=== PATIENT | female | born 1930 | race Caucasian/White ===

== ENCOUNTER 2019-12-18 01:44 | Observation (INO) | payer MEDICARE, OTHER ==
[2019-12-18] MEDS ORDERED: NALOXONE 0.4 MG/ML 1 ML VIAL IV PRN (02:12)
[2019-12-18] MEDS ORDERED: ACETAMINOPHEN TAB 325 MG TAB PO PRN (02:12)
[2019-12-18 07:03] LABS: Glucose,Whole Blood 179 mg/dL (75-99)
[2019-12-18] MEDS ORDERED: traMADol 50 MG TAB PO PRN ×2 (09:45→17:00)
[2019-12-18] MEDS ORDERED: bisacodyL 10 MG SUPP RECTAL PRN (09:45)
[2019-12-18] MEDS ORDERED: MAGNESIUM HYDROXIDE 2,400 MG/10 ML CUP PO PRN (09:47)
[2019-12-18 11:20] LABS: Glucose,Whole Blood 167 mg/dL (75-99)
[2019-12-18] MEDS: INSULIN ASPART (NovoLOG) 100 UNIT/ML VIAL SQ SCH ×3 (12:24→20:49)
[2019-12-18] MEDS: ACETAMINOPHEN TAB 325 MG TAB PO SCH ×2 (12:25→20:48)
[2019-12-18 13:35] LABS: Basophils # (A) 0.1 k/uL (0-0.2); Basophils % (A) 1 %; Eosinophils # (A) 0.2 k/uL (0-0.7); Eosinophils % (A) 2 %; HCT 41.9 % (34.0-46.0); HGB 13.6 gm/dL (11.4-16.0); Lymphocytes # (A) 2.9 k/uL (1.0-4.8); Lymphocytes % (A) 31 %; MCH 32.1 pg (25.0-35.0); MCHC 32.6 g/dL (31.0-37.0); MCV 98.5 fL (80.0-100.0); Mean Platelet Volume 7.1; Monocytes # (A) 0.5 k/uL (0-1.0); Monocytes % (A) 6 %; Neutrophils # (A) 5.4 k/uL (1.3-7.7); Neutrophils % (A) 58 %; Platelet Count 235 k/uL (150-450); RBC 4.25 m/uL (3.80-5.40); RDW 12.2 % (11.5-15.5); WBC 9.3 k/uL (3.8-10.6)
[2019-12-18 14:11] LABS: ALT 29 U/L (4-34); AST 35 U/L (14-36); African American GFR (CKD) 44 (>60 ml/min/1.73 sqM); Albumin 3.6 g/dL (3.5-5.0); Albumin/Globulin Ratio 1.1; Alkaline Phosphatase 80 U/L (38-126); Anion Gap 5 mmol/L; Blood Urea Nitrogen 36 mg/dL (7-17); C Reactive Protein 17.4 mg/L (<10.0); Calcium 9.3 mg/dL (8.4-10.2); Carbon Dioxide 27 mmol/L (22-30); Chloride 107 mmol/L (98-107); Globulin 3.2 g/dL; Glucose 183 mg/dL (74-99); LDH 494 U/L (313-618); Non-African American GFR(CKD) 38 (>60 ml/min/1.73 sqM); Potassium 4.8 mmol/L (3.5-5.1); Sodium 139 mmol/L (137-145); Total Bilirubin 0.8 mg/dL (0.2-1.3); Total Protein 6.8 g/dL (6.3-8.2)
--- NOTE | 2019-12-18 14:44 | XR ---
EXAMINATION TYPE: XR chest 1V DATE OF EXAM: 12/18/2019 CLINICAL HISTORY: Pneumonia. TECHNIQUE: Portable frontal view of the chest. COMPARISON: None FINDINGS: The patient is rotated to the right. Elevation of the hemidiaphragm. The cardiac silhouette is within normal limits for size. Pulmonary vasculature is normal. There is no focal air space opaci ty, pleural effusion, or pneumothorax seen. The osseous structures are intact. IMPRESSION: No acute cardiopulmonary process.
[2019-12-18 16:22] LABS: Glucose,Whole Blood 215 mg/dL (75-99)
[2019-12-18 20:17] LABS: Ferritin 224.5 ng/mL (10.0-291.0)
[2019-12-18 20:27] LABS: Glucose,Whole Blood 173 mg/dL (75-99)
[2019-12-18] MEDS: TOBRA-DEXAMET 0.3-0.1% OPHTH OINT 3.5 GM TUBE LEFT EYE SCH (20:48)
[2019-12-18] MEDS: APIXABAN 2.5 MG TABLET PO SCH (20:48)
[2019-12-18] MEDS: INSULIN DETEMIR (LEVEMIR) 100 UNIT/ML SYR SQ SCH (20:48)
[2019-12-18] MEDS: ARTIFICIAL TEARS-HYPROMELLOSE DROPS 15 ML BTL BOTH EYES SCH (20:48)
[2019-12-18] MEDS: ATORVASTATIN 10 MG TAB PO SCH (20:49)
--- NOTE | 2019-12-18 22:04 | P.HPIM ---
History of Present Illness H&P Date: 12/18/19 Chief Complaint: Acute COVID-19 infection Patient is a 89-year-old female with a known history of hypertension, hyperlipidemia, diabetes type 2 insulin-dependent, atrial fibrillation on anticoagulation with Eliquis was sent to hospital from [facility] after she was tested positive for COVID-19 viral infection. Patient is nonverbal at baseline. Awake alert. Could not communicate and bedridden. Patient does not have any fever at this time. No vomiting or diarrhea. Chest x-ray showed no acute cardiopulmonary process Laboratory data showed WBC 9.3, hemoglobin 13.1, absolute lymphocyte count 2.9, BUN 36 and creatinine 1.28 Blood sugar is 215 LDH 494 CRP 17.4 and ferritin level is 224 Review of Systems Complete review of systems could not be obtained from the patient except as per HPI. Past Medical History Past Medical History: Atrial Fibrillation, Hyperlipidemia, Hypertension, Neurologic Disorder History of Any Multi-Drug Resistant Organisms: None Reported Past Psychological History: No Psychological Hx Reported Smoking Status: Unknown if ever smoked Past Alcohol Use History: None Reported Past Drug Use History: None Reported Medications and Allergies Home Medications Medication Instructions Recorded Confirmed Type Acetaminophen Tab [Tylenol] 325 mg PO TID@0500,1300,199912/18/19 12/18/19 History Apixaban [Eliquis] 2.5 mg PO BID@0700,199912/18/19 12/18/19 History Artificial Tears-Hypromellose 1 drops BOTH EYES BID@0500,2100 12/18/19 12/18/19 History [Artificial Tear Drops] Atorvastatin [Lipitor] 10 mg PO HS@209912/18/19 12/18/19 History Cranberry 425mg 425 mg PO HS@199912/18/19 12/18/19 History Digoxin [Lanoxin] 125 mcg PO DAILY@0700 12/18/19 12/18/19 History Fluticasone Nasal [place] [Flonase 1 spray EA NOSTRIL DAILY@0700 12/18/19 12/18/19 History Nasal [place]] Insulin Aspart [NovoLOG Flexpen] See Protocol SQ DAILY@1200 12/18/19 12/18/19 History Insulin Detemir (Levemir) [Levemir] 90 unit SQ BID@0500,199912/18/19 12/18/19 History Loratadine [Claritin] 10 mg PO Q48H 12/18/19 12/18/19 History Magic Cup 120 ml PO HS@199912/18/19 12/18/19 History Magnesium Hydroxide [Milk of 2,400 mg PO DAILY PRN 12/18/19 12/18/19 History Magnesia] Metoprolol Tartrate [Lopressor] 25 mg PO DAILY@0700 12/18/19 12/18/19 History Multivitamins, Thera [Multivitamin 1 tab PO DAILY@0700 12/18/19 12/18/19 History (formulary)] Senexon-S 1 tab PO BID@0700,199912/18/19 12/18/19 History Tobra-Dexamet 0.3-0.1% Eye Oin 1 applic LEFT EYE HS@199912/18/19 12/18/19 History [Tobradex] Torsemide [Demadex] 20 mg PO DAILY@0700 12/18/19 12/18/19 History bisacodyL [Dulcolax] 10 mg RECTAL DAILY PRN 12/18/19 12/18/19 History lisinopriL [Zestril] 5 mg PO DAILY@0700 12/18/19 12/18/19 History sitaGLIPtin PHOSPHATE [Januvia] 25 mg PO DAILY@0700 12/18/19 12/18/19 History traMADol HCL [Ultram] 50 mg PO DAILY@1700 PRN 12/18/19 12/18/19 History traMADol HCL [Ultram] 100 mg PO DAILY@0500 12/18/19 12/18/19 History Allergies Allergy/AdvReac Type Severity Reaction Status Date / Time Penicillins Allergy Unknown Verified 12/18/19 07:57 Sulfa (Sulfonamide Allergy Unknown Verified 12/18/19 07:57 Antibiotics) tuberculin, purified protein Allergy Unknown Verified 12/18/19 07:57 deriva Physical Exam Vitals: Vital Signs Temp Pulse Pulse Resp BP BP Pulse Ox 12/18/19 07:00 98.3 F 72 18 101/66 96 12/18/19 03:32 98.1 F 76 18 135/71 94 L 12/18/19 02:14 20 12/18/19 01:46 98.3 F 91 18 119/70 95 Intake and Output 12/17/19 12/18/1920 22:59 06:59 14:59 Other: Voiding Method Diaper # Voids 1 Weight 49.895 kg PHYSICAL EXAMINATION: Patient is lying in the bed comfortably, no acute distress, awake alert but non verbal.. HEENT: Normocephalic. Neck is supple. Pupils reactive. Nostrils clear. Oral cavity is moist. Ears reveal no drainage. Neck reveals no JVD, carotid bruits, or thyromegaly. CHEST EXAMINATION: Trachea is central. Symmetrical expansion. Lung jimenez clear to auscultation and percussion. CARDIAC: Normal S1, S2 with no gallops. No murmurs ABDOMEN: Soft. Bowel sounds normal. No organomegaly. No abdominal bruits. Extremities: reveal no edema. No clubbing or cyanosis Neurologically awake, alert, oriented x0 with dementia Skin: No rash or skin lesions. Psychiatric: Coperative. Musculoskeletal: No joint swelling or deformity. Results CBC & Chem 7: 12/18/19 13:24 12/18/19 13:24 Labs: Abnormal Lab Results - Last 24 Hours (Table) 12/18/19 12/18/19 Range/Units 07:01 11:19 POC Glucose (mg/dL) 179 H 167 H (75-99) mg/dL Thrombosis Risk Factor Assmnt - DVT/VTE Prophylaxis DVT/VTE Prophylaxis: Pharmacologic Prophylaxis ordered - Choose All That Apply Each Risk Factor Represents 3 Points: Age 75 years or older Thrombosis Risk Factor Assessment Total Risk Factor Score: 3 Thrombosis Risk Factor Assessment Level: Moderate Risk Assessment and Plan Assessment: Acute COVID-19 viral infection Mild dehydration Diabetes type 2 insulin-dependent Proximal atrial fibrillation on anticoagulation with Eliquis. Rate controlled with digoxin and metoprolol. Hypertension controlled Hyperlipidemia Medical debility currently bedridden Advanced dementia DVT prophylaxis patient is already on Eliquis Plan: Patient will be continued on supportive therapy. Oxygen therapy as needed. Continue with anticoagulation with Eliquis as per her home dose. Continue to follow closely and will add dexamethasone if she gets hypoxic. Continue with home medications and insulin dosing. Discussed with her daughter. Further recommendations based on the clinical course. Time with Patient: Greater than 30
[2019-12-19 05:52] LABS: Glucose,Whole Blood 70 mg/dL (75-99)
[2019-12-19] MEDS: ACETAMINOPHEN TAB 325 MG TAB PO SCH ×3 (05:57→20:54)
[2019-12-19] MEDS: ARTIFICIAL TEARS-HYPROMELLOSE DROPS 15 ML BTL BOTH EYES SCH ×2 (05:57→20:55)
[2019-12-19] MEDS: INSULIN DETEMIR (LEVEMIR) 100 UNIT/ML SYR SQ SCH ×2 (06:33→20:54)
[2019-12-19 07:15] LABS: Glucose,Whole Blood 56 mg/dL (75-99)
[2019-12-19] MEDS: APIXABAN 2.5 MG TABLET PO SCH ×2 (07:17→20:54)
[2019-12-19] MEDS: TORSEMIDE 20 MG TAB PO SCH (07:17)
[2019-12-19] MEDS: DIGOXIN 125 MCG TAB PO SCH (07:17)
[2019-12-19] MEDS: lisinopriL 5 MG TAB PO SCH (07:17)
[2019-12-19] MEDS: METOPROLOL TARTRATE 25 MG TAB PO SCH (07:17)
[2019-12-19] MEDS: FLUTICASONE 50MCG/SPRAY NASAL 16GM EA NOSTRIL SCH (07:17)
[2019-12-19] MEDS: INSULIN ASPART (NovoLOG) 100 UNIT/ML VIAL SQ SCH ×4 (07:18→20:54)
[2019-12-19 07:30] LABS: Glucose,Whole Blood 66 mg/dL (75-99)
[2019-12-19 07:54] LABS: Glucose,Whole Blood 79 mg/dL (75-99)
[2019-12-19 09:44] LABS: African American GFR (CKD) 42.7 (60.0-200.0); Anion Gap 9.8 mmol/L (4.00-12.00); BUN/Creat Ratio 23.85 Ratio (12.00-20.00); Calcium 9.8 mg/dL (8.7-10.3); Carbon Dioxide 25.2 mmol/L (21.6-31.8); Non-African American GFR(CKD) 36.9 (60.0-200.0); Potassium 4.5 mmol/L (3.5-5.5)
[2019-12-19 11:22] LABS: Glucose,Whole Blood 232 mg/dL (75-99)
[2019-12-19 15:01] LABS: Hemoglobin A1C 7.8 % (4.0-6.0)
[2019-12-19 16:16] LABS: Glucose,Whole Blood 328 mg/dL (75-99)
[2019-12-19 20:47] LABS: Glucose,Whole Blood 251 mg/dL (75-99)
[2019-12-19] MEDS: ATORVASTATIN 10 MG TAB PO SCH (20:55)
[2019-12-19] MEDS: TOBRA-DEXAMET 0.3-0.1% OPHTH OINT 3.5 GM TUBE LEFT EYE SCH (20:56)
[2019-12-20] MEDS: ACETAMINOPHEN TAB 325 MG TAB PO SCH ×3 (05:32→19:08)
[2019-12-20] MEDS: ARTIFICIAL TEARS-HYPROMELLOSE DROPS 15 ML BTL BOTH EYES SCH ×2 (05:33→21:05)
[2019-12-20 07:15] LABS: Glucose,Whole Blood 148 mg/dL (75-99)
[2019-12-20] MEDS: lisinopriL 5 MG TAB PO SCH (07:30)
[2019-12-20] MEDS: METOPROLOL TARTRATE 25 MG TAB PO SCH (07:30)
[2019-12-20] MEDS: APIXABAN 2.5 MG TABLET PO SCH ×2 (07:30→19:08)
[2019-12-20] MEDS: FLUTICASONE 50MCG/SPRAY NASAL 16GM EA NOSTRIL SCH (07:30)
[2019-12-20] MEDS: TORSEMIDE 20 MG TAB PO SCH (07:31)
[2019-12-20] MEDS: DIGOXIN 125 MCG TAB PO SCH (07:31)
[2019-12-20] MEDS: INSULIN DETEMIR (LEVEMIR) 100 UNIT/ML SYR SQ SCH ×2 (07:32→21:05)
[2019-12-20] MEDS: INSULIN ASPART (NovoLOG) 100 UNIT/ML VIAL SQ SCH ×4 (07:32→21:05)
[2019-12-20 11:20] LABS: Glucose,Whole Blood 274 mg/dL (75-99)
[2019-12-20 16:28] LABS: Glucose,Whole Blood 206 mg/dL (75-99)
[2019-12-20] MEDS: TOBRA-DEXAMET 0.3-0.1% OPHTH OINT 3.5 GM TUBE LEFT EYE SCH (19:08)
[2019-12-20 20:43] LABS: Glucose,Whole Blood 245 mg/dL (75-99)
[2019-12-20] MEDS: ATORVASTATIN 10 MG TAB PO SCH (21:05)
--- NOTE | 2019-12-20 23:33 | P.PN ---
Subjective Progress Note Date: 12/19/19 Principal diagnosis: Acute COVID-19 infection Patient is a 89-year-old female with a known history of hypertension, hyperlipidemia, diabetes type 2 insulin-dependent, atrial fibrillation on anticoagulation with Eliquis was sent to hospital from [facility] after she was tested positive for COVID-19 viral infection. Patient is nonverbal at baseline. Awake alert. Could not communicate and bedridden. Patient does not have any fever at this time. No vomiting or diarrhea. Chest x-ray showed no acute cardiopulmonary process Laboratory data showed WBC 9.3, hemoglobin 13.1, absolute lymphocyte count 2.9, BUN 36 and creatinine 1.28 Blood sugar is 215 LDH 494 CRP 17.4 and ferritin level is 224 12/19/2019 Patient is currently lying in the bed comfortably. Patient is nonverbal at base line. Patient has been afebrile and saturating well on room air. No cough or sputum production. Tolerating oral diet. Chest x-ray showed no acute cardiopulmonary process. Patient is being continued on home medications including Eliquis. Insulin dosing. Insulin dose was reduced to 40 mg twice daily due to hypoglycemia. Continue with insulin sliding scale. Complete review of systems could not be obtained from the patient. Current medications reviewed. Objective - Vital Signs Vital signs: Vital Signs Temp 97.5 F L 12/19/19 18:58 Pulse 81 12/19/19 18:58 Resp 16 12/19/19 18:58 BP 145/69 12/19/19 18:58 Pulse Ox 95 12/19/19 18:58 Intake & Output 12/19/19 12/19/19 12/20/19 06:59 18:59 06:59 Output Total 100 400 Balance -100 -400 Output: Urine 100 400 Other: Voiding Method Diaper # Voids 1 2 - Exam PHYSICAL EXAMINATION: Patient is lying in the bed comfortably, no acute distress, awake alert but non verbal.. HEENT: Normocephalic. Neck is supple. Pupils reactive. Nostrils clear. Oral cavity is moist. Ears reveal no drainage. Neck reveals no JVD, carotid bruits, or thyromegaly. CHEST EXAMINATION: Trachea is central. Symmetrical expansion. Lung jimenez clear to auscultation and percussion. CARDIAC: Normal S1, S2 with no gallops. No murmurs ABDOMEN: Soft. Bowel sounds normal. No organomegaly. No abdominal bruits. Extremities: reveal no edema. No clubbing or cyanosis Neurologically awake, alert, oriented x0 with dementia Skin: No rash or skin lesions. Psychiatric: Coperative. Musculoskeletal: No joint swelling or deformity. - Labs CBC & Chem 7: 12/18/19 13:24 12/19/19 06:00 Labs: Abnormal Lab Results - Last 24 Hours (Table) 12/19/19 12/19/19 12/19/19 Range/Units 05:49 06:00 06:00 BUN 31.0 H (9.0-27.0) mg/dL Est GFR (CKD-EPI)AfAm 42.7 L (60.0-200.0) Est GFR (CKD-EPI)NonAf 36.9 L (60.0-200.0) BUN/Creatinine Ratio 23.85 H (12.00-20.00) Ratio Glucose 55 L (70-110) mg/dL POC Glucose (mg/dL) 70 L (75-99) mg/dL Hemoglobin A1c 7.8 H (4.0-6.0) % 12/19/19 12/19/19 12/19/19 Range/Units 07:05 07:26 11:20 BUN (9.0-27.0) mg/dL Est GFR (CKD-EPI)AfAm (60.0-200.0) Est GFR (CKD-EPI)NonAf (60.0-200.0) BUN/Creatinine Ratio (12.00-20.00) Ratio Glucose (70-110) mg/dL POC Glucose (mg/dL) 56 L 66 L 232 H (75-99) mg/dL Hemoglobin A1c (4.0-6.0) % 12/19/19 12/19/19 Range/Units 16:14 20:45 BUN (9.0-27.0) mg/dL Est GFR (CKD-EPI)AfAm (60.0-200.0) Est GFR (CKD-EPI)NonAf (60.0-200.0) BUN/Creatinine Ratio (12.00-20.00) Ratio Glucose (70-110) mg/dL POC Glucose (mg/dL) 328 H 251 H (75-99) mg/dL Hemoglobin A1c (4.0-6.0) % Assessment and Plan Assessment: Acute COVID-19 viral infection Mild dehydration Diabetes type 2 insulin-dependent Proximal atrial fibrillation on anticoagulation with Eliquis. Rate controlled with digoxin and metoprolol. Hypertension controlled Hyperlipidemia Medical debility currently bedridden Advanced dementia DVT prophylaxis patient is already on Eliquis Plan: Patient will be continued on supportive therapy. Oxygen therapy as needed. Continue with anticoagulation with Eliquis as per her home dose. Continue to follow closely and will add dexamethasone if she gets hypoxic. Continue with home medications and insulin dosing. Discussed with her daughter. Further recommendations based on the clinical course. Time with Patient: Greater than 30
--- NOTE | 2019-12-20 23:34 | P.PN ---
Subjective Progress Note Date: 12/20/19 Principal diagnosis: Acute COVID-19 infection Patient is a 89-year-old female with a known history of hypertension, hyperlipidemia, diabetes type 2 insulin-dependent, atrial fibrillation on anticoagulation with Eliquis was sent to hospital from [facility] after she was tested positive for COVID-19 viral infection. Patient is nonverbal at baseline. Awake alert. Could not communicate and bedridden. Patient does not have any fever at this time. No vomiting or diarrhea. Chest x-ray showed no acute cardiopulmonary process Laboratory data showed WBC 9.3, hemoglobin 13.1, absolute lymphocyte count 2.9, BUN 36 and creatinine 1.28 Blood sugar is 215 LDH 494 CRP 17.4 and ferritin level is 224 12/19/2019 Patient is currently lying in the bed comfortably. Patient is nonverbal at base line. Patient has been afebrile and saturating well on room air. No cough or sputum production. Tolerating oral diet. Chest x-ray showed no acute cardiopulmonary process. Patient is being continued on home medications including Eliquis. Insulin dosing. Insulin dose was reduced to 40 mg twice daily due to hypoglycemia. Continue with insulin sliding scale. 12/20/2019 Patient is currently lying in the bed comfortably. Tolerating oral diet. Currently saturating well on room air. No nausea vomiting or diarrhea. Patient is nonverbal at baseline. No cough or sputum production. No other acute overnight issues. Awaiting transfer to [address] Complete review of systems could not be obtained from the patient. Current medications reviewed. Objective - Vital Signs Vital signs: Vital Signs Temp 97.4 F L 12/20/19 19:05 Pulse 72 12/20/19 19:05 Resp 16 12/20/19 19:05 BP 129/81 12/20/19 19:05 Pulse Ox 94 L 12/20/19 19:05 Intake & Output 12/20/19 12/20/19 12/21/19 06:59 18:59 06:59 Intake Total 100 Output Total 300 600 Balance -200 -600 Intake: Oral 100 Output: Urine 300 600 Other: Voiding Method Diaper Diaper Incontinent # Voids 1 - Exam PHYSICAL EXAMINATION: Patient is lying in the bed comfortably, no acute distress, awake alert but non verbal.. HEENT: Normocephalic. Neck is supple. Pupils reactive. Nostrils clear. Oral cavity is moist. Ears reveal no drainage. Neck reveals no JVD, carotid bruits, or thyromegaly. CHEST EXAMINATION: Trachea is central. Symmetrical expansion. Lung jimenez clear to auscultation and percussion. CARDIAC: Normal S1, S2 with no gallops. No murmurs ABDOMEN: Soft. Bowel sounds normal. No organomegaly. No abdominal bruits. Extremities: reveal no edema. No clubbing or cyanosis Neurologically awake, alert, oriented x0 with dementia Skin: No rash or skin lesions. Psychiatric: Coperative. Musculoskeletal: No joint swelling or deformity. - Labs CBC & Chem 7: 12/18/19 13:24 12/19/19 06:00 Labs: Abnormal Lab Results - Last 24 Hours (Table) 12/20/19 12/20/19 12/20/19 Range/Units 07:13 11:16 16:27 POC Glucose (mg/dL) 148 H 274 H 206 H (75-99) mg/dL 12/20/19 Range/Units 20:39 POC Glucose (mg/dL) 245 H (75-99) mg/dL Assessment and Plan Assessment: Acute COVID-19 viral infection Mild dehydration Diabetes type 2 insulin-dependent Proximal atrial fibrillation on anticoagulation with Eliquis. Rate controlled with digoxin and metoprolol. Hypertension controlled Hyperlipidemia Medical debility currently bedridden Advanced dementia DVT prophylaxis patient is already on Eliquis Plan: Patient will be continued on supportive therapy. Oxygen therapy as needed. Continue with anticoagulation with Eliquis as per her home dose. Continue to follow closely and will add dexamethasone if she gets hypoxic. Continue with home medications and insulin dosing. Further recommendations based on the clinical course. Time with Patient: Greater than 30
[2019-12-21] MEDS: ACETAMINOPHEN TAB 325 MG TAB PO SCH ×3 (04:15→20:05)
[2019-12-21] MEDS: ARTIFICIAL TEARS-HYPROMELLOSE DROPS 15 ML BTL BOTH EYES SCH ×2 (04:16→20:06)
[2019-12-21 05:56] LABS: Glucose,Whole Blood 116 mg/dL (75-99)
[2019-12-21] MEDS: lisinopriL 5 MG TAB PO SCH (06:00)
[2019-12-21] MEDS: INSULIN DETEMIR (LEVEMIR) 100 UNIT/ML SYR SQ SCH ×2 (06:00→20:42)
[2019-12-21] MEDS: DIGOXIN 125 MCG TAB PO SCH (06:00)
[2019-12-21] MEDS: METOPROLOL TARTRATE 25 MG TAB PO SCH (06:00)
[2019-12-21] MEDS: APIXABAN 2.5 MG TABLET PO SCH ×2 (06:00→20:05)
[2019-12-21] MEDS: TORSEMIDE 20 MG TAB PO SCH (06:00)
[2019-12-21] MEDS: FLUTICASONE 50MCG/SPRAY NASAL 16GM EA NOSTRIL SCH (06:00)
[2019-12-21 06:54] LABS: Glucose,Whole Blood 135 mg/dL (75-99)
[2019-12-21] MEDS: INSULIN ASPART (NovoLOG) 100 UNIT/ML VIAL SQ SCH ×4 (07:18→20:42)
[2019-12-21 11:48] LABS: Glucose,Whole Blood 197 mg/dL (75-99)
[2019-12-21 16:56] LABS: Glucose,Whole Blood 162 mg/dL (75-99)
[2019-12-21] MEDS: ATORVASTATIN 10 MG TAB PO SCH (20:05)
[2019-12-21] MEDS: TOBRA-DEXAMET 0.3-0.1% OPHTH OINT 3.5 GM TUBE LEFT EYE SCH (20:06)
[2019-12-21 20:32] LABS: Glucose,Whole Blood 216 mg/dL (75-99)
[2019-12-22] MEDS: ARTIFICIAL TEARS-HYPROMELLOSE DROPS 15 ML BTL BOTH EYES SCH ×2 (04:58→19:37)
[2019-12-22] MEDS: ACETAMINOPHEN TAB 325 MG TAB PO SCH ×3 (04:58→19:37)
[2019-12-22] MEDS: APIXABAN 2.5 MG TABLET PO SCH ×2 (07:30→19:36)
[2019-12-22] MEDS: DIGOXIN 125 MCG TAB PO SCH (07:30)
[2019-12-22] MEDS: TORSEMIDE 20 MG TAB PO SCH (07:30)
[2019-12-22] MEDS: METOPROLOL TARTRATE 25 MG TAB PO SCH (07:30)
[2019-12-22] MEDS: lisinopriL 5 MG TAB PO SCH (07:31)
[2019-12-22] MEDS: FLUTICASONE 50MCG/SPRAY NASAL 16GM EA NOSTRIL SCH (07:31)
[2019-12-22] MEDS: INSULIN DETEMIR (LEVEMIR) 100 UNIT/ML SYR SQ SCH ×2 (07:31→20:58)
[2019-12-22] MEDS: INSULIN ASPART (NovoLOG) 100 UNIT/ML VIAL SQ SCH ×4 (07:31→20:58)
[2019-12-22 07:52] LABS: Glucose,Whole Blood 128 mg/dL (75-99)
[2019-12-22 11:34] LABS: Glucose,Whole Blood 265 mg/dL (75-99)
[2019-12-22 17:05] LABS: Glucose,Whole Blood 177 mg/dL (75-99)
[2019-12-22] MEDS: ATORVASTATIN 10 MG TAB PO SCH (19:36)
[2019-12-22] MEDS: TOBRA-DEXAMET 0.3-0.1% OPHTH OINT 3.5 GM TUBE LEFT EYE SCH (19:37)
[2019-12-22 20:48] LABS: Glucose,Whole Blood 213 mg/dL (75-99)
--- NOTE | 2019-12-23 | P.PN ---
Subjective Progress Note Date: 12/21/19 Principal diagnosis: Acute COVID-19 infection Patient is a 89-year-old female with a known history of hypertension, hyperlipidemia, diabetes type 2 insulin-dependent, atrial fibrillation on anticoagulation with Eliquis was sent to hospital from [facility] after she was tested positive for COVID-19 viral infection. Patient is nonverbal at baseline. Awake alert. Could not communicate and bedridden. Patient does not have any fever at this time. No vomiting or diarrhea. Chest x-ray showed no acute cardiopulmonary process Laboratory data showed WBC 9.3, hemoglobin 13.1, absolute lymphocyte count 2.9, BUN 36 and creatinine 1.28 Blood sugar is 215 LDH 494 CRP 17.4 and ferritin level is 224 12/19/2019 Patient is currently lying in the bed comfortably. Patient is nonverbal at base line. Patient has been afebrile and saturating well on room air. No cough or sputum production. Tolerating oral diet. Chest x-ray showed no acute cardiopulmonary process. Patient is being continued on home medications including Eliquis. Insulin dosing. Insulin dose was reduced to 40 mg twice daily due to hypoglycemia. Continue with insulin sliding scale. 12/20/2019 Patient is currently lying in the bed comfortably. Tolerating oral diet. Currently saturating well on room air. No nausea vomiting or diarrhea. Patient is nonverbal at baseline. No cough or sputum production. No other acute overnight issues. Awaiting transfer to [address] 12/21/2019 Patient is currently resting in the bed comfortably no fever no chills. Saturating well on room air. No nausea vomiting or diarrhea. Tolerating oral diet. Awaiting for placement. Complete review of systems could not be obtained from the patient. Current medications reviewed. Objective - Vital Signs Vital signs: Vital Signs Temp 98.7 F 12/21/19 19:05 Pulse 75 12/21/19 19:05 Resp 19 12/21/19 19:05 BP 113/71 12/21/19 19:05 Pulse Ox 94 L 12/21/19 19:05 Intake & Output 12/21/19 12/21/19 12/22/19 06:59 18:59 05:59 Intake Total 100 Output Total 300 Balance -200 Intake: Oral 100 Output: Urine 300 Other: Voiding Method Diaper Diaper Incontinent Incontinent # Voids 2 - Exam PHYSICAL EXAMINATION: Patient is lying in the bed comfortably, no acute distress, awake alert but non verbal.. HEENT: Normocephalic. Neck is supple. Pupils reactive. Nostrils clear. Oral cavity is moist. Ears reveal no drainage. Neck reveals no JVD, carotid bruits, or thyromegaly. CHEST EXAMINATION: Trachea is central. Symmetrical expansion. Lung jimenez clear to auscultation and percussion. CARDIAC: Normal S1, S2 with no gallops. No murmurs ABDOMEN: Soft. Bowel sounds normal. No organomegaly. No abdominal bruits. Extremities: reveal no edema. No clubbing or cyanosis Neurologically awake, alert, oriented x0 with dementia Skin: No rash or skin lesions. Psychiatric: Coperative. Musculoskeletal: No joint swelling or deformity. - Labs CBC & Chem 7: 12/18/19 13:24 12/19/19 06:00 Labs: Abnormal Lab Results - Last 24 Hours (Table) 12/21/19 12/21/19 12/21/19 Range/Units 05:56 06:51 11:46 POC Glucose (mg/dL) 116 H 135 H 197 H (75-99) mg/dL 12/21/19 12/21/19 Range/Units 16:54 20:31 POC Glucose (mg/dL) 162 H 216 H (75-99) mg/dL Assessment and Plan Assessment: Acute COVID-19 viral infection Mild dehydration Diabetes type 2 insulin-dependent Proximal atrial fibrillation on anticoagulation with Eliquis. Rate controlled with digoxin and metoprolol. Hypertension controlled Hyperlipidemia Medical debility currently bedridden Advanced dementia DVT prophylaxis patient is already on Eliquis Plan: Patient will be continued on supportive therapy. Oxygen therapy as needed. Continue with anticoagulation with Eliquis as per her home dose. Continue to follow closely and will add dexamethasone if she gets hypoxic. Continue with home medications and insulin dosing. Further recommendations based on the clinical course.
--- NOTE | 2019-12-23 00:01 | P.PN ---
Subjective Progress Note Date: 12/22/19 Principal diagnosis: Acute COVID-19 infection Patient is a 89-year-old female with a known history of hypertension, hyperlipidemia, diabetes type 2 insulin-dependent, atrial fibrillation on anticoagulation with Eliquis was sent to hospital from [facility] after she was tested positive for COVID-19 viral infection. Patient is nonverbal at baseline. Awake alert. Could not communicate and bedridden. Patient does not have any fever at this time. No vomiting or diarrhea. Chest x-ray showed no acute cardiopulmonary process Laboratory data showed WBC 9.3, hemoglobin 13.1, absolute lymphocyte count 2.9, BUN 36 and creatinine 1.28 Blood sugar is 215 LDH 494 CRP 17.4 and ferritin level is 224 12/19/2019 Patient is currently lying in the bed comfortably. Patient is nonverbal at base line. Patient has been afebrile and saturating well on room air. No cough or sputum production. Tolerating oral diet. Chest x-ray showed no acute cardiopulmonary process. Patient is being continued on home medications including Eliquis. Insulin dosing. Insulin dose was reduced to 40 mg twice daily due to hypoglycemia. Continue with insulin sliding scale. 12/20/2019 Patient is currently lying in the bed comfortably. Tolerating oral diet. Currently saturating well on room air. No nausea vomiting or diarrhea. Patient is nonverbal at baseline. No cough or sputum production. No other acute overnight issues. Awaiting transfer to [address] 12/21/2019 Patient is currently resting in the bed comfortably no fever no chills. Saturating well on room air. No nausea vomiting or diarrhea. Tolerating oral diet. Awaiting for placement. 12/22/2019 Patient is currently resting in bed comfortably. Tolerating oral diet. No fever no chills. Saturating well on room air. No shortness of the. Current medications reviewed. Anticipate discharge back to rehab once a bed is available. Complete review of systems could not be obtained from the patient. Current medications reviewed. Objective - Vital Signs Vital signs: Vital Signs Temp 98.5 F 12/22/19 19:04 Pulse 82 12/22/19 19:04 Resp 16 12/22/19 19:04 BP 143/83 12/22/19 19:04 Pulse Ox 97 12/22/19 19:04 Intake & Output 12/22/19 12/22/1920 06:59 18:59 06:59 Intake Total Output Total 300 Balance -300 Intake: Oral Output: Urine 300 Other: Voiding Method Diaper Diaper Incontinent Incontinent - Exam PHYSICAL EXAMINATION: Patient is lying in the bed comfortably, no acute distress, awake alert but non verbal.. HEENT: Normocephalic. Neck is supple. Pupils reactive. Nostrils clear. Oral cavity is moist. Ears reveal no drainage. Neck reveals no JVD, carotid bruits, or thyromegaly. CHEST EXAMINATION: Trachea is central. Symmetrical expansion. Lung jimenez clear to auscultation and percussion. CARDIAC: Normal S1, S2 with no gallops. No murmurs ABDOMEN: Soft. Bowel sounds normal. No organomegaly. No abdominal bruits. Extremities: reveal no edema. No clubbing or cyanosis Neurologically awake, alert, oriented x0 with dementia Skin: No rash or skin lesions. Psychiatric: Coperative. Musculoskeletal: No joint swelling or deformity. - Labs CBC & Chem 7: 12/18/19 13:24 12/19/19 06:00 Labs: Abnormal Lab Results - Last 24 Hours (Table) 12/22/19 12/22/19 12/22/19 Range/Units 07:22 11:32 17:03 POC Glucose (mg/dL) 128 H 265 H 177 H (75-99) mg/dL 12/22/19 Range/Units 20:47 POC Glucose (mg/dL) 213 H (75-99) mg/dL Assessment and Plan Assessment: Acute COVID-19 viral infection Mild dehydration Diabetes type 2 insulin-dependent Proximal atrial fibrillation on anticoagulation with Eliquis. Rate controlled with digoxin and metoprolol. Hypertension controlled Hyperlipidemia Medical debility currently bedridden Advanced dementia DVT prophylaxis patient is already on Eliquis Plan: Patient will be continued on supportive therapy. Oxygen therapy as needed. Continue with anticoagulation with Eliquis as per her home dose. Continue to follow closely and will add dexamethasone if she gets hypoxic. Continue with home medications and insulin dosing. Further recommendations based on the clinical course.
[2019-12-23] MEDS: ACETAMINOPHEN TAB 325 MG TAB PO SCH ×2 (04:51→12:25)
[2019-12-23] MEDS: ARTIFICIAL TEARS-HYPROMELLOSE DROPS 15 ML BTL BOTH EYES SCH (04:51)
[2019-12-23 06:38] LABS: Basophils # (A) 0.1 k/uL (0-0.2); Basophils % (A) 1 %; Eosinophils # (A) 0.3 k/uL (0-0.7); Eosinophils % (A) 2 %; HGB 15.4 gm/dL (11.4-16.0); Lymphocytes # (A) 3.8 k/uL (1.0-4.8); Lymphocytes % (A) 29 %; MCH 32.3 pg (25.0-35.0); MCHC 32.1 g/dL (31.0-37.0); MCV 100.8 fL (80.0-100.0); Mean Platelet Volume 7.8; Monocytes # (A) 1.1 k/uL (0-1.0); Monocytes % (A) 8 %; Neutrophils # (A) 7.6 k/uL (1.3-7.7); Neutrophils % (A) 58 %; Platelet Count 250 k/uL (150-450); RBC 4.76 m/uL (3.80-5.40); RDW 12.3 % (11.5-15.5); WBC 13.2 k/uL (3.8-10.6)
[2019-12-23 06:44] LABS: Glucose,Whole Blood 83 mg/dL (75-99)
[2019-12-23 07:39] VITALS: RESP 18
[2019-12-23] MEDS: APIXABAN 2.5 MG TABLET PO SCH (08:13)
[2019-12-23] MEDS: METOPROLOL TARTRATE 25 MG TAB PO SCH (08:13)
[2019-12-23] MEDS: lisinopriL 5 MG TAB PO SCH (08:13)
[2019-12-23] MEDS: FLUTICASONE 50MCG/SPRAY NASAL 16GM EA NOSTRIL SCH (08:13)
[2019-12-23] MEDS: DIGOXIN 125 MCG TAB PO SCH (08:13)
[2019-12-23] MEDS: TORSEMIDE 20 MG TAB PO SCH (08:13)
[2019-12-23] MEDS: INSULIN DETEMIR (LEVEMIR) 100 UNIT/ML SYR SQ SCH (08:14)
[2019-12-23] MEDS: INSULIN ASPART (NovoLOG) 100 UNIT/ML VIAL SQ SCH ×3 (08:14→17:18)
[2019-12-23 09:24] LABS: African American GFR (CKD) 35.9 (60.0-200.0); BUN/Creat Ratio 36.67 Ratio (12.00-20.00); Calcium 9.7 mg/dL (8.7-10.3); Potassium 4.4 mmol/L (3.5-5.5)
[2019-12-23 11:33] LABS: Glucose,Whole Blood 145 mg/dL (75-99)
[2019-12-23 13:38] VITALS: BP 91/54; PULSE 77; TEMP 98.2
--- NOTE | 2019-12-23 15:09 | P.DS ---
Providers Date of admission: 12/18/19 02:12 Expected date of discharge: 12/23/19 Attending physician: Madonna Rodriguez Primary care physician: Vicente Mueller [facility] Course: Discharge diagnosis Acute COVID-19 viral infection. Patient is currently on room air and did not require supplemental oxygen or steroids. Mild dehydration Diabetes type 2 insulin-dependent Proximal atrial fibrillation on anticoagulation with Eliquis. Rate controlled with digoxin and metoprolol. Hypertension controlled Hyperlipidemia Medical debility currently bedridden Advanced dementia DVT prophylaxis patient is already on Eliquis Hospital course Patient is a 89-year-old female with a known history of hypertension, hyperlipidemia, diabetes type 2 insulin-dependent, atrial fibrillation on anticoagulation with Eliquis was sent to hospital from [facility] after she was tested positive for COVID-19 viral infection. Patient is nonverbal at baseline. Awake alert. Could not communicate and bedridden. Patient does not have any fever at this time. No vomiting or diarrhea. Chest x-ray showed no acute cardiopulmonary process Laboratory data showed WBC 9.3, hemoglobin 13.1, absolute lymphocyte count 2.9, BUN 36 and creatinine 1.28 Blood sugar is 215 LDH 494 CRP 17.4 and ferritin level is 224 12/19/2019 Patient is currently lying in the bed comfortably. Patient is nonverbal at base line. Patient has been afebrile and saturating well on room air. No cough or sputum production. Tolerating oral diet. Chest x-ray showed no acute cardiopulmonary process. Patient is being continued on home medications including Eliquis. Insulin dosing. Insulin dose was reduced to 40 mg twice daily due to hypoglycemia. Continue with insulin sliding scale. 12/20/2019 Patient is currently lying in the bed comfortably. Tolerating oral diet. Curr ently saturating well on room air. No nausea vomiting or diarrhea. Patient is nonverbal at baseline. No cough or sputum production. No other acute overnight issues. Awaiting transfer to [facility]. 12/21/2019 Patient is currently resting in the bed comfortably no fever no chills. Saturating well on room air. No nausea vomiting or diarrhea. Tolerating oral diet. Awaiting for placement. 12/22/2019 Patient is currently resting in bed comfortably. Tolerating oral diet. No fever no chills. Saturating well on room air. No shortness of the. Current medications reviewed. Anticipate discharge back to rehab once a bed is available. 12/23/2019 Patient is currently resting in the bed comfortably. Patient has been afebrile for the last few days. Saturating well on room air. Patient is nonverbal at baseline and has advanced dementia. Patient does not have indwelling Corral catheter. Patient was encouraged with oral intake and fluid intake. Hemodynamically stable. No episodes of vomiting or diarrhea. Patient will be discharged back to extended care facility. Levemir decreased to 45 units twice daily compared to from 90 units twice daily. Torsemide is held due to volume depletion and hypotension and dehydration. PHYSICAL EXAMINATION: Patient is lying in the bed comfortably, no acute distress, awake alert but non verbal.. HEENT: Normocephalic. Neck is supple. Pupils reactive. Nostrils clear. Oral cavity is moist. Ears reveal no drainage. Neck reveals no JVD, carotid bruits, or thyromegaly. CHEST EXAMINATION: Trachea is central. Symmetrical expansion. Lung jimenez clear to auscultation and percussion. CARDIAC: Normal S1, S2 with no gallops. No murmurs ABDOMEN: Soft. Bowel sounds normal. No organomegaly. No abdominal bruits. Extremities: reveal no edema. No clubbing or cyanosis Neurologically awake, alert, oriented x0 with dementia Skin: No rash or skin lesions. Psychiatric: Coperative. Musculoskeletal: No joint swelling or deformity. Vital Signs 12/23/19 12/23/19 08:00 13:38 Temperature 98.2 F Pulse Rate [ 71 77 Pulse Oximetery ] Respiratory 18 18 Rate Blood Pressure 91/54 [Right Arm] O2 Sat by Pulse 93 L Oximetry Total time taken greater than 35 minutes including 18 minutes for counseling and coordination of care. Patient Condition at Discharge: Fair Plan - Discharge Summary Discharge Rx Participant: No New Discharge Prescriptions: New Insulin Detemir (Levemir) [Levemir] 45 unit SQ BID@0700,2099 #0 syr Continue Acetaminophen Tab [Tylenol] 325 mg PO TID@0500,1300,1999 Artificial Tears-Hypromellose [Artificial Tear Drops] 1 drops BOTH EYES BID@0500,2099 Apixaban [Eliquis] 2.5 mg PO BID@0700,1999 Tobra-Dexamet 0.3-0.1% Eye Oin [Tobradex Ophth Oint] 1 applic LEFT EYE HS@1999 sitaGLIPtin PHOSPHATE [Januvia] 25 mg PO DAILY@0700 Multivitamins, Thera [Multivitamin (formulary)] 1 tab PO DAILY@0700 Metoprolol Tartrate [Lopressor] 25 mg PO DAILY@0700 lisinopriL [Zestril] 5 mg PO DAILY@0700 Loratadine [Claritin] 10 mg PO Q48H Atorvastatin [Lipitor] 10 mg PO HS@2099 Fluticasone Nasal [place]is[place] [Flonase Nasal [place]is[place]] 1 spray EA NOSTRIL DAILY@0700 Digoxin [Lanoxin] 125 mcg PO DAILY@0700 bisacodyL [Dulcolax] 10 mg RECTAL DAILY PRN PRN Reason: Constipation Senexon-S 1 tab PO BID@0700,1999 traMADol HCL [Ultram] 100 mg PO DAILY@0500 Insulin Aspart [NovoLOG Flexpen] See Protocol SQ DAILY@1200 Magic Cup 120 ml PO HS@1999 Cranberry 425mg 425 mg PO HS@1999 Magnesium Hydroxide [Milk of Magnesia] 2,400 mg PO DAILY PRN PRN Reason: Constipation traMADol HCL [Ultram] 50 mg PO DAILY@1700 PRN #3 tab PRN Reason: Pain Discontinued Insulin Detemir (Levemir) [Levemir] 90 unit SQ BID@050,1999 Torsemide [Demadex] 20 mg PO DAILY@0700 Discharge Medication List Acetaminophen Tab [Tylenol] 325 mg PO TID@0500,1300,199912/18/19 [History] Apixaban [Eliquis] 2.5 mg PO BID@0700,199912/18/19 [History] Artificial Tears-Hypromellose [Artificial Tear Drops] 1 drops BOTH EYES BID@0500,209912/18/19 [History] Atorvastatin [Lipitor] 10 mg PO HS@209912/18/19 [History] Cranberry 425mg 425 mg PO HS@199912/18/19 [History] Digoxin [Lanoxin] 125 mcg PO DAILY@0700 12/18/19 [History] Fluticasone Nasal [place] [Flonase Nasal [place]] 1 spray EA NOSTRIL DAILY@0700 12/18/19 [History] Insulin Aspart [NovoLOG Flexpen] See Protocol SQ DAILY@1200 12/18/19 [History] Loratadine [Claritin] 10 mg PO Q48H 12/18/19 [History] Magic Cup 120 ml PO HS@199912/18/19 [History] Magnesium Hydroxide [Milk of Magnesia] 2,400 mg PO DAILY PRN 12/18/19 [History] Metoprolol Tartrate [Lopressor] 25 mg PO DAILY@0700 12/18/19 [History] Multivitamins, Thera [Multivitamin (formulary)] 1 tab PO DAILY@0700 12/18/19 [History] Senexon-S 1 tab PO BID@07,199912/18/19 [History] Tobra-Dexamet 0.3-0.1% Eye Oin [Tobradex Ophth Oint] 1 applic LEFT EYE HS@199912/18/19 [History] bisacodyL [Dulcolax] 10 mg RECTAL DAILY PRN 12/18/19 [History] lisinopriL [Zestril] 5 mg PO DAILY@0700 12/18/19 [History] sitaGLIPtin PHOSPHATE [Januvia] 25 mg PO DAILY@0700 12/18/19 [History] traMADol HCL [Ultram] 100 mg PO DAILY@0500 12/18/19 [History] Insulin Detemir (Levemir) [Levemir] 45 unit SQ BID@0700,2100 #0 syr 12/23/19 [Rx] traMADol HCL [Ultram] 50 mg PO DAILY@1700 PRN #3 tab 12/23/19 [Rx] Follow up Appointment(s)/Referral(s): Vicente Mueller MD [Primary Care Provider] - 1 Week Discharge Disposition: TRANSFER TO SNF/ECF
[2019-12-23 16:27] LABS: Glucose,Whole Blood 177 mg/dL (75-99)
== END 2019-12-23 18:36 ==
LOC: EC 01:44 → 4SSUR 02:12
PROVIDERS: ADMIT Hospitalist; ATTEND Hospitalist
DX: U07.1 COVID-19 (principal); E86.9 Volume depletion, unspecified; I95.9 Hypotension, unspecified; E86.0 Dehydration; E78.5 Hyperlipidemia, unspecified; E11.649 Type 2 diabetes mellitus with hypoglycemia without coma; I10 Essential (primary) hypertension; I48.91 Unspecified atrial fibrillation; Z74.01 Bed confinement status; R29.90 Unspecified symptoms and signs involving the nervous system; F03.90 Unspecified dementia, unspecified severity, without behavioral disturbance, psychotic disturbance, mood disturbance, and anxiety; Z79.4 Long term (current) use of insulin; Z79.899 Other long term (current) drug therapy; Z79.01 Long term (current) use of anticoagulants; Z88.0 Allergy status to penicillin; Z88.2 Allergy status to sulfonamides; Z88.7 Allergy status to serum and vaccine
CPT/HCPCS: 80053; 80048 ×2; 82728; 83615; 85025 ×2; 86140; 83036; 71045; G0378 ×6